=== PATIENT | male | born 1955 | race Caucasian/White ===

== ENCOUNTER → 2017-09-22 | Outpatient (CLI) | payer BC ==
[~2017-09-22] MED LIST: NKM; NORCO 10-325 T1 EACH PO; OXYBUTYNIN CHLOR5 MG PO; REFLUX MEDICATION PO; TYLENOL WITH C1 EACH PO; ULTRAM 50MG50 MG PO; Z.0.ENABLEX7.5 MG PO; Z.0.URIBEL CAPSULE1 PO; Z.0.VICODIN 5-5001 E PO
--- NOTE | 2017-09-22 12:34 | Diagnostic Imaging Report ---
PROCEDURE: CT ABDOMEN AND PELVIS WITHOUT CONTRAST COMPARISON:CT abdomen/pelvis 10/30/15 INDICATIONS:CALCULUS OF THE KIDNEY TECHNIQUE: Axial CT images through the abdomen and pelvis were obtained without IV contrast utilizing a renal stone protocol. Coronal and sagittal reformations were created. DLP: 772.13 FINDINGS: Lung bases: Clear. Visualized portion of the mediastinum is normal in size. Coronary artery calcifications are present Liver: Decreased attenuation. The low attenuating lesion in segment 7 on previous exam is no longer visualized. The right lobe measures 18 cm in length. Spleen: Normal size and attenuation without mass. Biliary: The gallbladder is present and normal in morphology. No biliary ductal dilatation. Pancreas: No mass or ductal dilatation. No calcifications. Adrenal Glands: No evidence of mass. Kidneys: The left kidney is smaller than the right and lobulated in contour consistent with scarring. This is similar to previous exam. Multiple renal vascular calcifications are present in the edis. The right kidney demonstrates no cortical mass or intrarenal calculus. The left kidney contains a parenchymal calcification in the anterior interpolar cortex measuring 7 mm. 5 mm calcification at the anterior hilum is stable in position. A punctate calcification in the posterior interpolar cortex is stable. The collecting system is not dilated. A cyst in the interpolar region measures 16 mm near the hilum. Vasculature: The aorta is mildly ectatic with a maximum diameter of 2.7 cm. Diffuse atherosclerotic plaque is present, both calcified and noncalcified. There are desiccation throughout the iliac arteries without aneurysmal dilatation. GI: The stomach is normal. The small bowel is normal in diameter with normal wall thickness. A large bowel contained a few diverticula in the sigmoid colon without associated inflammation. The remainder of the large bowel is unremarkable. The appendix is normal. Peritoneum/Retroperitoneum: No free fluid or fluid collection. Bladder: There is circumferential mural thickening. No intraluminal calculi. The prostate gland measures 5.2 x 6.0 cm. No ureteral dilatation. Lymph nodes: No enlarged abdominal, mesenteric, pelvic or inguinal lymph nodes. Musculoskeletal: Mild degenerative changes of the spine consistent with age. No focal osseous lesions. CONCLUSION: 1. No evidence of intrarenal calculus or obstructive uropathy. Left renal atrophy and scarring is unchanged in morphology. 2. Prostate hypertrophy and diffuse bladder wall thickening suggesting outlet obstruction. 3. Diverticulosis coli. 4. Hepatic steatosis and mild hepatomegaly. A cyst in the right lobe on previous exam is no longer visualized. 5. Infrarenal aortic ectasia. Dictated by: Lesley Meyers M.D. on 09/22/2017 at 12:42 Electronically approved by: Lesley Meyers M.D. on 09/22/2017 at 12:42
== END ==
LOC: CT 11:19
PROVIDERS: ATTEND Urology
DX: N20.0 Calculus of kidney (principal)
CPT/HCPCS: 74176

== ENCOUNTER → 2022-03-03 | Outpatient (CLI) | payer BC | LOC: CT 07:51 | PROVIDERS: ATTEND Family Medicine | DX: R04.2 Hemoptysis (principal) | CPT/HCPCS: 71250 ==